=== PATIENT | male | born 1940 | race Caucasian/White ===

== ENCOUNTER 2022-04-06 12:21 | Outpatient (CLI) | payer MEDICARE, SELFPAY ==
[2022-04-06 08:21] LABS: Abs Immature Grans 0.03 10^3/uL (0.0-0.06); Absolute Lymphocyte Count 0.79 10^3/uL (1.2-3.4); Absolute Monocyte Count 0.38 10^3/uL (0.1-0.8); Absolute Neutrophil Count 5.44 10^3/uL (1.2-6.7); HCT 32.8 % (40.0-50.0); HGB 10.4 g/dL (13.5-17.5); Immature Grans % 0.5; Lymphocytes % 11.9; MCH 30.6 pg (27.0-33.0); MCHC 31.7 % (32.0-36.0); MCV 97 fL (80-95); MPV 10.7 fL (8.0-11.0); Monocytes % 5.7; Neutrophils % 81.9; Platelet Count 263 10^3/uL (130-400); RDW-SD 56.3 fL; WBC 6.64 10^3/uL (4.4-10.8)
[2022-04-06 08:57] LABS: ALT 30 U/L (16-63); AST 33 U/L (15-37); Albumin 2.8 g/dL (3.4-5.0); Alkaline Phosphatase 64 U/L (46-116); Anion Gap 9.3 mmol/L (3-11); BUN 16 mg/dL (7-18); Bilirubin, Total 0.9 mg/dL (0.2-1.0); CO2 26.7 mmol/L (21.0-32.0); CREATININE 1.1 mg/dL (0.70-1.30); Chloride 104 mmol/L (98-107); Estimated GFR 67.86 (mL/min/1.73m2); Glucose 151 mg/dL (74-106); Potassium 3.7 mmol/L (3.5-5.1); Sodium 140 mmol/L (136-145)
[2022-04-08 16:58] LABS: Testosterone, Total <7.0 ng/dL (240-950)
== END 2022-04-06 12:22 | disposition home or self-care (01) ==
LOC: LBO 12:22
PROVIDERS: PCP Family Medicine; Visit Provider Internal Medicine
DX: C61 Malignant neoplasm of prostate (principal); C79.51 Secondary malignant neoplasm of bone
CPT/HCPCS: 36415; 80053; 84153; 84403; 85025